=== PATIENT | female | born 1985 | race Caucasian/White ===

== ENCOUNTER 2017-08-20 14:32 | Emergency (ER) | payer BC ==
[~2017-08-20] VITALS: Ht 160 cm; Wt 68.0 kg
[2017-08-20] MEDS ORDERED: VIIBRYD10 MG PO (14:43)
[2017-08-20] MEDS ORDERED: NAPROSYN500 MG PO (15:30)
[2017-08-20 15:43] VITALS: BP 105/65
== END 2017-08-20 15:45 | disposition home or self-care (01) ==
LOC: M.ERS 14:32
DX: S63.690A Other sprain of right index finger, initial encounter (principal); F32.9 Major depressive disorder, single episode, unspecified; Z88.1 Allergy status to other antibiotic agents; W18.39XA Other fall on same level, initial encounter; Y93.89 Activity, other specified; Y92.89 Other specified places as the place of occurrence of the external cause; Y99.8 Other external cause status

== ENCOUNTER 2018-10-30 22:08 | Emergency (ER) | payer BC ==
[~2018-10-30] VITALS: Ht 160 cm; Wt 65.8 kg
[~2018-10-30 22:08] MED LIST: NAPROSYN500 MG PO; VIIBRYD10 MG PO
[2018-10-30] MEDS ORDERED: ULTRAM 50MG TAB50 MG PO (23:55)
[2018-10-30] MEDS ORDERED: IBUPROFEN 800800 MG PO (23:55)
[2018-10-31] VITALS: BP 115/68
== END 2018-10-31 | disposition home or self-care (01) ==
LOC: M.ERS 22:08
DX: S80.12XA Contusion of left lower leg, initial encounter (principal); F32.9 Major depressive disorder, single episode, unspecified; Z88.1 Allergy status to other antibiotic agents; Z90.710 Acquired absence of both cervix and uterus; W21.07XA Struck by softball, initial encounter; Y92.89 Other specified places as the place of occurrence of the external cause; Y93.64 Activity, baseball; Y99.8 Other external cause status

== ENCOUNTER 2019-12-22 15:25 | Emergency (ER) | payer BC ==
[~2019-12-22] VITALS: Ht 160 cm; Wt 69.0 kg
[~2019-12-22 15:25] MED LIST changes: +IBUPROFEN 800800 MG PO; +ULTRAM 50MG TAB50 MG PO
[2019-12-22] MEDS ORDERED: VRAYLAR1.5 MG PO (15:34)
[2019-12-22] MEDS ORDERED: LAMICTAL100 MG (15:34)
[2019-12-22] MEDS ORDERED: NORCO 5-325 TA1 EAC2 PO (18:19)
[2019-12-22] MEDS ORDERED: MEDROLDOSEPACK PO (18:19)
[2019-12-22] MEDS ORDERED: FLEXERIL PO (18:19)
[2019-12-22 18:53] VITALS: BP 148/78
== END 2019-12-22 18:54 | disposition home or self-care (01) ==
LOC: M.ERS 15:25
DX: M54.12 Radiculopathy, cervical region (principal); Z79.899 Other long term (current) drug therapy; Z88.1 Allergy status to other antibiotic agents; Z90.710 Acquired absence of both cervix and uterus